=== PATIENT | female | born 1995 | race Caucasian/White ===

== ENCOUNTER 2019-06-26 12:37 | Emergency (ER) | payer OTHER ==
--- NOTE | 2019-06-26 14:11 | ER Document Report ---
ED Medical Screen (RME) - General Chief Complaint: Abdominal Pain Stated Complaint: LOWER ABDOMINAL PAIN Time Seen by Provider: 06/26/19 13:54 Notes: Patient is a 23-year-old female who presents to the emergency department with a chief complaint of abdominal pain. Patient states last Tuesday she developed epigastric pain. Patient states that on Tuesday it started to migrate towards the right lower quadrant. Patient states she was treated for H. pylori back in November and that this feels similar. Patient reports that the pain in her right lower quadrant feels like a constant dull ache. Patient states she has had nausea without vomiting or diarrhea. Patient reports her last bowel movement was yesterday and normal. Patient denies vaginal bleeding or discharge. Patient reports her last menstrual cycle was June 03. TRAVEL OUTSIDE OF THE U.S. IN LAST 30 DAYS: No - Related Data Allergies/Adverse Reactions: azithromycin Allergy (Verified 06/26/19 12:40) clindamycin Allergy (Verified 06/26/19 12:40) tetracycline Allergy (Verified 06/26/19 12:40) Past Medical History Renal/ Medical History: Denies: Hx Peritoneal Dialysis Physical Exam - Vital signs Vitals: Temp Pulse Resp BP Pulse Ox 98.4 F 97 16 127/72 H 98 06/26/19 12:44 06/26/19 12:44 06/26/19 12:44 06/26/19 12:44 06/26/19 12:44 Interpretation: Normal - Abdominal Inspection: Normal Distension: No distension Bowel sounds: Normal Tenderness: Tender - Very minimal tenderness in the RUQ and RLQ Course - Re-evaluation Re-evalutation: 06/26/19 14:11 I have greeted and performed a rapid initial assessment of this patient. A comprehensive ED assessment and evaluation of the patient, analysis of test results and completion of the medical decision making process will be conducted by additional ED providers. - Vital Signs Vital signs: Temp Pulse Resp BP Pulse Ox 98.4 F 97 16 127/72 H 98 06/26/19 12:44 06/26/19 12:44 06/26/19 12:44 06/26/19 12:44 06/26/19 12:44
[2019-06-26 14:45] LABS: ABSOLUTE EOSINOPHILS # (AUTO) 0.1 10^3/uL (0.0-0.6); ABSOLUTE LYMPHOCYTES (AUTO) 1.2 10^3/uL (0.5-4.7); ABSOLUTE MONOCYTES (AUTO) 0.4 10^3/uL (0.1-1.4); ABSOLUTE NEUT (AUTO) 2.2 10^3/uL (1.7-8.2); BASOPHILS % (AUTO) 0.7 % (0-2); EOSINOPHILS % (AUTO) 2.7 % (0-6); HEMATOCRIT 39.2 % (36.0-47.0); HEMOGLOBIN 13.5 g/dL (12.0-15.5); LYMPHOCYTES % (AUTO) 30.8 % (13-45); MEAN CORPUSCULAR HEMOGLOBIN 29.6 pg (27.0-33.4); MEAN CORPUSCULAR HGB CONC 34.5 g/dL (32.0-36.0); MEAN CORPUSCULAR VOLUME 86 fl (80-97); PLATELET COUNT 323 10^3/uL (150-450); RED BLOOD COUNT 4.56 10^6/uL (3.72-5.28); RED CELL DISTRIBUTION WIDTH 12.7 % (11.5-14.0); SEGMENTED NEUTROPHILS % (AUTO) 56.8 % (42-78); TOTAL CELLS COUNTED % (AUTO) 100 %; WHITE BLOOD COUNT 3.9 10^3/uL (4.0-10.5)
[2019-06-26 14:49] LABS: AMORPHOUS SEDIMENT,URINE TRACE /HPF; APPEARANCE,URINE TURBID; BILIRUBIN,URINE NEGATIVE (NEGATIVE); COLOR,URINE AMBER; GLUCOSE, URINE NEGATIVE (NEGATIVE); KETONES,URINE NEGATIVE (NEGATIVE); LEUKOCYTE ESTERASE,URINE NEGATIVE (NEGATIVE); NITRITE,URINE NEGATIVE (NEGATIVE); PROTEIN,URINE NEGATIVE (NEGATIVE); URINE SPECIFIC GRAVITY 1.024; UROBILINOGEN,URINE NEGATIVE mg/dL (<2.0)
[2019-06-26] MEDS ORDERED: ONDANSETRON 4 MG TAB.RAPDIS PO ONE (14:49)
--- NOTE | 2019-06-26 14:55 | ER Document Report ---
ED General - General Chief Complaint: Abdominal Pain Stated Complaint: LOWER ABDOMINAL PAIN Time Seen by Provider: 06/26/19 13:54 Mode of Arrival: Ambulatory Information source: Patient TRAVEL OUTSIDE OF THE [place]S. IN LAST 30 DAYS: No - HPI Notes: Patient presents with a approximate 4-day history of abdominal pain. She states that it started in the epigastric area and is now located in the right lower quadrant. It has been constant. Nothing makes it better or worse. She states she has had a normal appetite. She has had some nausea but no vomiting. No problems with urine or stool. No vaginal discharge or bleeding. She states she does not believe she is . No significant medical problems or past surgeries. The pain does radiate to her back. It is sharp. It is moderate in intensity. - Related Data Allergies/Adverse Reactions: azithromycin Allergy (Verified 06/26/19 12:40) clindamycin Allergy (Verified 06/26/19 12:40) tetracycline Allergy (Verified 06/26/19 12:40) Past Medical History - General Information source: Patient - Social History Smoking Status: Never Smoker Frequency of alcohol use: None Drug Abuse: None Family History: Reviewed & Not Pertinent Patient has suicidal ideation: No Patient has homicidal ideation: No Renal/ Medical History: Denies: Hx Peritoneal Dialysis Review of Systems - Review of Systems Constitutional: denies: Chills, Fever Cardiovascular: denies: Chest pain, Dyspnea Respiratory: denies: Cough, Short of breath -: Yes All other systems reviewed and negative Physical Exam - Vital signs Vitals: Temp Pulse Resp BP Pulse Ox 98.4 F 97 16 127/72 H 98 06/26/19 12:44 06/26/19 12:44 06/26/19 12:44 06/26/19 12:44 06/26/19 12:44 Interpretation: Normal - General General appearance: Appears well, Alert - HEENT Head: Normocephalic, Atraumatic Eyes: Normal Pupils: PERRL - Respiratory Respiratory status: No respiratory distress Chest status: Nontender Breath sounds: Normal Chest palpation: Normal - Cardiovascular Rhythm: Regular Heart sounds: Normal auscultation Murmur: No - Abdominal Inspection: Normal Distension: No distension Bowel sounds: Normal Tenderness: Tender - Patient is mildly tender palpation on the right lower quadrant Organomegaly: No organomegaly - Back Back: Normal, Nontender - Extremities General upper extremity: Normal inspection, Nontender, Normal color, Normal ROM, Normal temperature General lower extremity: Normal inspection, Nontender, Normal color, Normal ROM, Normal temperature, Normal weight bearing. No: Joi's sign - Neurological Neuro grossly intact: Yes Cognition: Normal Orientation: AAOx4 [place] Coma Scale Eye Opening: Spontaneous [place] Coma Scale Verbal: Oriented Shaq Coma Scale Motor: Obeys Commands Shaq Coma Scale Total: 15 Speech: Normal Motor strength normal: LUE, RUE, LLE, RLE Sensory: Normal - Psychological Associated symptoms: Normal affect, Normal mood - Skin Skin Temperature: Warm Skin Moisture: Dry Skin Color: Normal Course - Vital Signs Vital signs: Temp Pulse Resp BP Pulse Ox 98.4 F 97 16 127/72 H 98 06/26/19 12:44 06/26/19 12:44 06/26/19 12:44 06/26/19 12:44 06/26/19 12:44 - Laboratory Result Diagrams: 06/26/19 14:37 06/26/19 14:37 Laboratory results interpreted by me: 06/26/19 06/26/19 06/26/19 12:49 14:37 14:37 WBC 3.9 L Total Protein 6.2 L Urine Blood SMALL H 06/26/19 15:26 Laboratory 06/26/19 06/26/19 06/26/19 12:49 14:37 14:37 WBC 3.9 L RBC 4.56 Hgb 13.5 Hct 39.2 MCV 86 MCH 29.6 MCHC 34.5 RDW 12.7 Plt Count 323 Seg Neutrophils % 56.8 Lymphocytes % 30.8 Monocytes % 9.0 Eosinophils % 2.7 Basophils % 0.7 Absolute Neutrophils 2.2 Absolute Lymphocytes 1.2 Absolute Monocytes 0.4 Absolute Eosinophils 0.1 Absolute Basophils 0.0 Sodium 137.9 Potassium 4.0 Chloride 104 Carbon Dioxide 26 Anion Gap 8 BUN 15 Creatinine 0.59 Est GFR ( Amer) > 60 Est GFR (Non-Af Amer) > 60 Glucose 85 Calcium 9.1 Total Bilirubin 0.2 Direct Bilirubin 0.1 Neonat Total Bilirubin Not Reportable Neonat Direct Bilirubin Not Reportable Neonat Indirect Bili Not Reportable AST 27 ALT 34 Alkaline Phosphatase 39 Total Protein 6.2 L Albumin 3.7 Lipase 63.3 Urine Color WARREN Urine Appearance TURBID Urine pH 5.0 Ur Specific Linden 1.024 Urine Protein NEGATIVE Urine Glucose (UA) NEGATIVE Urine Ketones NEGATIVE Urine Blood SMALL H Urine Nitrite NEGATIVE Urine Bilirubin NEGATIVE Urine Urobilinogen NEGATIVE Ur Leukocyte Esterase NEGATIVE Urine WBC (Auto) 0 Squamous Epi Cells Auto 2 Amorphous Sediment Auto TRACE Urine Mucus (Auto) OCC Urine Ascorbic Acid NEGATIVE Urine HCG, Qual NEGATIVE - Diagnostic Test Radiology reviewed: Image reviewed, Reports reviewed Radiology results interpreted by me: 06/26/19 15:26 Abdomen/Pelvis CT 06/26/19 14:49 IMPRESSION: Trace amount of fluid the pelvis most likely physiologic. No other significant findings. Discharge - Discharge Clinical Impression: Right lower quadrant pain Condition: Stable Disposition: HOME, SELF-CARE Instructions: Abdominal Pain ([facility]) Additional Instructions: If he continues to have abdominal pain or if the abdominal pain worsens please return to the emergency department or to a medical provider for reevaluation. Prescriptions: Tramadol HCl [Ultram 50 mg Tablet] 50 mg PO Q4HP PRN #10 tab PRN Reason: Referrals: ASHLEY GRIFFIN MD [ACTIVE STAFF] - Follow up as needed
[2019-06-26 15:06] LABS: ALBUMIN 3.7 g/dL (3.5-5.0); ALKALINE PHOSPHATASE 39 U/L (38-126); ANION GAP 8 (5-19); ASPARTATE AMINO TRANSFERASE 27 U/L (14-36); BILIRUBIN,DIRECT 0.1 mg/dL (0.0-0.4); BILIRUBIN,TOTAL 0.2 mg/dL (0.2-1.3); BLOOD UREA NITROGEN 15 mg/dL (7-20); CALCIUM 9.1 mg/dL (8.4-10.2); CARBON DIOXIDE 26 mmol/L (22-30); CHLORIDE 104 mmol/L (98-107); GLUCOSE 85 mg/dL (75-110); TOTAL PROTEIN 6.2 g/dL (6.3-8.2)
--- NOTE | 2019-06-26 15:23 | RADIOLOGY REPORT (SQ) ---
EXAM DESCRIPTION: CT ABD/PELVIS NO ORAL OR IV COMPLETED DATE/TIME: 06/26/2019 3:11 pm REASON FOR STUDY: right lq pain/rule out stone COMPARISON: None. TECHNIQUE: CT scan of the abdomen and pelvis performed without intravenous or oral contrast. Images reviewed with lung, soft tissue, and bone windows. Reconstructed coronal and sagittal MPR images revi ewed. All images stored on PACS. All CT scanners at this facility use dose modulation, iterative reconstruction, and/or weight based d osing when appropriate to reduce radiation dose to as low as reasonably achievable (ALARA). [facility]: Dose Right [facility]: CareDose [facility]: Dose Right [facility]: Teradose 4D [facility]: Smart SkyDox RADIATION DOSE: CT Rad equipment meets quality standard of care and radiation dose reduction techniq ues were employed. CTDIvol: 2.2 mGy. DLP: 111 mGy-cm.mGy. LIMITATIONS: None. FINDINGS: LOWER CHEST: No significant findings. No nodules or infiltrates. NON-CONTRASTED LIVER, SPLEEN, ADRENALS: Evaluation limited by lack of IV contrast. No identified sign ificant masses. PANCREAS: No masses. No peripancreatic inflammatory changes. GALLBLADDER: No identified stones by CT criteria. No inflammatory changes to suggest cholecystitis. RIGHT KIDNEY AND URETER: No suspicious masses. Assessment limited by lack of IV contrast. No signif icant calcifications. No hydronephrosis or hydroureter. LEFT KIDNEY AND URETER: No suspicious masses. Assessment limited by lack of IV contrast. No signifi cant calcifications. No hydronephrosis or hydroureter. AORTA AND RETROPERITONEUM: No aneurysm. No retroperitoneal masses or adenopathy. BOWEL AND PERITONEAL CAVITY: No obvious masses or inflammatory changes. No free fluid. There is a mo derate amount of stool throughout the colon. APPENDIX: Not visualized. PELVIS, BLADDER, AND ABDOMINAL WALL:There is a trace amount of free fluid the pelvis. BONES: No significant findings. OTHER: No other significant finding. IMPRESSION: Trace amount of fluid the pelvis most likely physiologic. No other significant findings . COMMENT: Quality ID # [id number]: Final reports with documentation of one or more dose reduction techniques (e.g., Automated exposure control, adjustment of the mA and/or kV according to patient size, use of iterative reconstruction technique) TECHNICAL DOCUMENTATION: JOB ID: [id number]- All Rights Reserved Reading location - IP/workstation name: [email or web address]
[2019-06-26 15:55] VITALS: BP 109/61
== END 2019-06-26 15:56 | disposition home or self-care (01) ==
LOC: ER 12:37
DX: R10.31 Right lower quadrant pain (principal); R11.0 Nausea; R10.813 Right lower quadrant abdominal tenderness; R18.8 Other ascites; Z88.1 Allergy status to other antibiotic agents
CPT/HCPCS: 36415; 83690; 85025; 81025; 80053; 81001; 74176; S0119; 99284

== ENCOUNTER 2019-11-15 14:24 | Emergency (ER) | payer OTHER ==
--- NOTE | 2019-11-15 16:03 | ER Document Report ---
ED Medical Screen (RME) - General Chief Complaint: Abdominal Pain Stated Complaint: ABDOMINAL PAIN Time Seen by Provider: 11/15/19 15:59 Notes: CHIEF COMPLAINT: Right lower quadrant pain for 6 days HPI: 24-year-old female presenting with right lower quadrant pain that has been constant over the last 6 days. No definitive fever has had some chills. No dysuria. No back pain or flank pain. Denies vaginal discharge or bleeding. Last menstrual cycle was 1 month ago and was normal. Patient does not believe she is . Patient states that it hurts to bend at the waist or sit down. Patient does have prior history of an ovarian cyst but states she is unsure of whether this feels the same she is concerned she might have appendicitis ROS: See HPI - all other systems were reviewed and are otherwise negative Constitutional: no fever GI: no vomiting, no diarrhea, + abdominal pain : no dysuria Integumentary: no rash Allergy: no hives MEDICATIONS: I agree with the patient medications as charted by the RN. ALLERGIES: I agree with the allergies as charted by the RN. PAST MEDICAL HISTORY/PAST SURGICAL HISTORY: Reviewed and agree as charted by RN. SOCIAL HISTORY: Reviewed and agree as charted by RN. FAMILY HISTORY: No significant familial comorbid conditions directly related to patient complaint EXAM: Reviewed vital signs as charted by RN. CONSTITUTIONAL: Alert and oriented and responds appropriately to questions. Well-appearing; well-nourished HEAD: Normocephalic; atraumatic EYES: Conjunctivae clear, sclerae non-icteric ENT: normal nose; no rhinorrhea; moist mucous membranes NECK: Supple without meningismuss CARD: RRR; no murmurs, no clicks, no rubs, no gallops RESP: Normal chest excursion without splinting or tachypnea ABD/GI: Normal bowel sounds; non-distended; soft, mild tenderness in the right lower quadrant and right pelvis on palpation, + mild rebound, no guarding; no palpable organomegaly or masses. Negative psoas negative obturator BACK: The back appears normal and is non-tender to palpation, there is no CVA tenderness EXT: Normal ROM in all joints; non-tender to palpation; no cyanosis, no effusions, no edema SKIN: Normal color for age and race; warm; dry; good turgor NEURO: Moves all extremities equally; Motor and sensory function intact PSYCH: The patient's mood and manner are appropriate. Grooming and personal hygiene are appropriate. I have greeted and performed a rapid initial assessment of this patient. A comprehensive ED assessment and evaluation of the patient, analysis of test results and completion of the medical decision making process will be conducted by additional ED providers TRAVEL OUTSIDE OF THE [place] IN LAST 30 DAYS: No - Related Data Allergies/Adverse Reactions: azithromycin Allergy (Verified 06/26/19 12:40) clindamycin Allergy (Verified 06/26/19 12:40) tetracycline Allergy (Verified 06/26/19 12:40) Past Medical History Renal/ Medical History: Denies: Hx Peritoneal Dialysis Physical Exam - Vital signs Vitals: Temp Pulse Resp BP Pulse Ox 99 F 91 18 129/74 H 100 11/15/19 14:49 11/15/19 14:49 11/15/19 14:49 11/15/19 14:49 11/15/19 14:49 Course - Vital Signs Vital signs: Temp Pulse Resp BP Pulse Ox 99 F 91 18 129/74 H 100 11/15/19 14:49 11/15/19 14:49 11/15/19 14:49 11/15/19 14:49 11/15/19 14:49 - Laboratory Result Diagrams: 11/15/19 16:23 11/15/19 16:23
[2019-11-15 16:33] LABS: ABSOLUTE LYMPHOCYTES (AUTO) 1.3 10^3/uL (0.5-4.7); ABSOLUTE MONOCYTES (AUTO) 0.4 10^3/uL (0.1-1.4); ABSOLUTE NEUT (AUTO) 3.5 10^3/uL (1.7-8.2); BASOPHILS % (AUTO) 0.6 % (0-2); EOSINOPHILS % (AUTO) 0.9 % (0-6); HEMATOCRIT 43.1 % (36.0-47.0); HEMOGLOBIN 14.8 g/dL (12.0-15.5); LYMPHOCYTES % (AUTO) 24.4 % (13-45); MEAN CORPUSCULAR HEMOGLOBIN 29.5 pg (27.0-33.4); MEAN CORPUSCULAR HGB CONC 34.4 g/dL (32.0-36.0); MEAN CORPUSCULAR VOLUME 86 fl (80-97); MONOCYTES % (AUTO) 6.9 % (3-13); PLATELET COUNT 362 10^3/uL (150-450); RED BLOOD COUNT 5.03 10^6/uL (3.72-5.28); RED CELL DISTRIBUTION WIDTH 12.4 % (11.5-14.0); SEGMENTED NEUTROPHILS % (AUTO) 67.2 % (42-78); TOTAL CELLS COUNTED % (AUTO) 100 %; WHITE BLOOD COUNT 5.2 10^3/uL (4.0-10.5)
[2019-11-15 16:37] LABS: APPEARANCE,URINE CLEAR; BILIRUBIN,URINE NEGATIVE (NEGATIVE); COLOR,URINE YELLOW; GLUCOSE, URINE NEGATIVE (NEGATIVE); KETONES,URINE NEGATIVE (NEGATIVE); LEUKOCYTE ESTERASE,URINE NEGATIVE (NEGATIVE); NITRITE,URINE NEGATIVE (NEGATIVE); PROTEIN,URINE NEGATIVE (NEGATIVE); URINE SPECIFIC GRAVITY 1.013; UROBILINOGEN,URINE NEGATIVE mg/dL (<2.0)
[2019-11-15 16:51] LABS: ALBUMIN 4.2 g/dL (3.5-5.0); ALKALINE PHOSPHATASE 42 U/L (38-126); ANION GAP 9 (5-19); ASPARTATE AMINO TRANSFERASE 31 U/L (14-36); BILIRUBIN,DIRECT 0.1 mg/dL (0.0-0.4); BILIRUBIN,TOTAL 0.4 mg/dL (0.2-1.3); BLOOD UREA NITROGEN 15 mg/dL (7-20); CALCIUM 9.7 mg/dL (8.4-10.2); CARBON DIOXIDE 27 mmol/L (22-30); CHLORIDE 102 mmol/L (98-107); GLUCOSE 99 mg/dL (75-110); TOTAL PROTEIN 7.4 g/dL (6.3-8.2)
--- NOTE | 2019-11-15 16:53 | ER Document Report ---
ED GI/ - General TRAVEL OUTSIDE OF THE U.S. IN LAST 30 DAYS: No <GIDEON PIÑA - Last Filed: 11/15/19 19:11> <KUSHSUE BULL - Last Filed: 11/16/19 06:27> - General Chief Complaint: Abdominal Pain Stated Complaint: ABDOMINAL PAIN Time Seen by Provider: 11/15/19 15:59 Notes: CHIEF COMPLAINT: Right lower quadrant pain for 6 days HPI: 24-year-old female presenting with right lower quadrant pain that has been constant over the last 6 days. No definitive fever has had some chills. No dysuria. No back pain or flank pain. Denies vaginal discharge or bleeding. Last menstrual cycle was 1 month ago and was normal. Patient does not believe she is . Patient states that it hurts to bend at the waist or sit down. Patient does have prior history of an ovarian cyst but states she is unsure of whether this feels the same she is concerned she might have appendicitis ROS: See HPI - all other systems were reviewed and are otherwise negative Constitutional: no fever GI: no vomiting, no diarrhea, + abdominal pain : no dysuria Integumentary: no rash Allergy: no hives MEDICATIONS: I agree with the patient medications as charted by the RN. ALLERGIES: I agree with the allergies as charted by the RN. PAST MEDICAL HISTORY/PAST SURGICAL HISTORY: Reviewed and agree as charted by RN. SOCIAL HISTORY: Reviewed and agree as charted by RN. FAMILY HISTORY: No significant familial comorbid conditions directly related to patient complaint EXAM: Reviewed vital signs as charted by RN. CONSTITUTIONAL: Alert and oriented and responds appropriately to questions. W ell-appearing; well-nourished HEAD: Normocephalic; atraumatic EYES: Conjunctivae clear, sclerae non-icteric ENT: normal nose; no rhinorrhea; moist mucous membranes NECK: Supple without meningismuss CARD: RRR; no murmurs, no clicks, no rubs, no gallops RESP: Normal chest excursion without splinting or tachypnea ABD/GI: Normal bowel sounds; non-distended; soft, mild tenderness in the right lower quadrant and right pelvis on palpation, + mild rebound, no guarding; no palpable organomegaly or masses. Negative psoas negative obturator BACK: The back appears normal and is non-tender to palpation, there is no CVA tenderness EXT: Normal ROM in all joints; non-tender to palpation; no cyanosis, no effusions, no edema SKIN: Normal color for age and race; warm; dry; good turgor NEURO: Moves all extremities equally; Motor and sensory function intact PSYCH: The patient's mood and manner are appropriate. Grooming and personal hygiene are appropriate. (GIDEON PIÑA) - Related Data Allergies/Adverse Reactions: azithromycin Allergy (Verified 11/15/19 19:50) clindamycin Allergy (Verified 11/15/19 19:50) tetracycline Allergy (Verified 11/15/19 19:50) Past Medical History - Social History Family History: Reviewed & Not Pertinent Renal/ Medical History: Denies: Hx Peritoneal Dialysis <GIDEON PIÑA - Last Filed: 11/15/19 19:11> - Social History Smoking Status: Never Smoker <SUE LORENZO - Last Filed: 11/16/19 06:27> Physical Exam - Vital signs Vitals: Temp Pulse Resp BP Pulse Ox 99 F 91 18 129/74 H 100 11/15/19 14:49 11/15/19 14:49 11/15/19 14:49 11/15/19 14:49 11/15/19 14:49 Course - Laboratory Result Diagrams: 11/15/19 16:23 11/15/19 16:23 <GIDEON PIÑA - Last Filed: 11/15/19 19:11> - Laboratory Result Diagrams: 11/15/19 16:23 11/15/19 16:23 <SUE LORENZO - Last Filed: 11/16/19 06:27> - Vital Signs Vital signs: Temp Pulse Resp BP Pulse Ox 98.5 F 81 18 147/73 H 99 11/15/19 22:30 11/15/19 22:30 11/15/19 22:30 11/15/19 22:30 11/15/19 22:30 11/15/19 19:11 : Female nurse social services counselor present. External genitalia normal. No skin lesions noted. Pelvic Exam: No active bleeding. No purulent discharge. Cervix appears normal. No CMT. Cervical Os is closed. No lesions or masses. Uterus normal size and non tender. Right/Left adnexa normal size and non tender. Do not suspect PID. Ultrasound did not show acute findings in the right ovary suggesting a definitive cause for patient's pain. Will obtain CT, given the BMI patient will need to drink oral contrast. Report will be given to oncoming shift following disposition (GIDEON PIÑA) Discharge <GIDEON PIÑA - Last Filed: 11/15/19 19:11> <SUE LORENZO - Last Filed: 11/16/19 06:27> - Discharge Clinical Impression: Abdominal pain Qualifiers: Abdominal location: generalized Qualified Code(s): R10.84 - Generalized abdominal pain Condition: Stable Disposition: HOME, SELF-CARE Additional Instructions: Your pain appears to be coming from retained stool in the colon, I recommend that you take the Colace as prescribed for the next several days, use the Bentyl for pain/cramps, take the Phenergan if needed for nausea and abdominal upset. Increase fiber, continue to hydrate. You might need the stool softener periodically to avoid this in the future, but avoid taking this daily. 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 Please take the report and follow-up closely with the urology referral for additional management and treatment of this. Call one of the l isted referrals below to have this performed. Return if you worsen including vomiting, fever, severe worsening pain, or any other concerning symptoms. [facility] [address] [place], [place] [id number] [facility] [address] [place], [place] [id number] Regi Blake MD Doctor in [place], [place] Address: [address], [place] [address] Prescriptions: Dicyclomine HCl [Bentyl 20 mg Tablet] 20 mg PO QID PRN #20 tablet PRN Reason: Docusate Sodium [Colace 100 mg Capsule] 100 mg PO ASDIR PRN #30 capsule PRN Reason: Promethazine HCl [Phenergan 25 mg Tablet] 25 mg PO Q6H PRN #15 tablet PRN Reason: Forms: Return to Work
--- NOTE | 2019-11-15 18:10 | RADIOLOGY REPORT (SQ) ---
EXAM DESCRIPTION: U/S NON OB PEL W/DOPPLER COMPLETED DATE/TIME: 11/15/2019 5:27 pm REASON FOR STUDY: RLQ pain LMP 10/18/2019 COMPARISON: None. TECHNIQUE: Dynamic and static grayscale images acquired of the pelvis via transabdominal approach an d recorded on PACS. Additional selected color Doppler and spectral images recorded. LIMITATIONS: None. FINDINGS: UTERUS: Contour normal. No mass. ENDOMETRIAL STRIPE: No focal or generalized thickening. No masses. CERVIX: 2.7 cm. No nabothian cysts. RIGHT OVARY AND DOPPLER: Normal size. No worrisome masses. Normal arterial vascular flow without evid ence for torsion. LEFT OVARY AND DOPPLER: Ovary not seen. FREE FLUID: None noted. OTHER: No other significant finding. MEASUREMENTS: UTERUS: 5.9 x 3.2 x 2.5 cm. ENDOMETRIAL STRIPE: 5 mm. RIGHT OVARY: 1.9 x 2.2 x 1.9 cm. LEFT OVARY: Not seen. IMPRESSION: NORMAL PELVIC ULTRASOUND. TECHNICAL DOCUMENTATION: JOB ID: [id number]- All Rights Reserved Rev-03/24 Reading location - IP/workstation name: [email or web address]
[2019-11-15 18:58] LABS: RBCS (WET MOUNT) RARE RBCS SEEN; T.VAGINALIS (WET MOUNT) NO TRICHOMONAS SEEN; WBCS (WET MOUNT) RARE WBCS SEEN; YEAST (WET MOUNT) NO YEAST SEEN
[2019-11-15] MEDS ORDERED: MORPHINE SULFATE 10 MG/ML INJ IV ONE (19:11)
[2019-11-15] MEDS ORDERED: ONDANSETRON HCL INJ/PF 4 MG/2 ML SDV IV ONE (19:11)
[2019-11-15 20:28] LABS: CHLAM PCR NOT DETECTED (NOT DETECT)
--- NOTE | 2019-11-15 21:49 | RADIOLOGY REPORT (SQ) ---
EXAM DESCRIPTION: CLINICAL HISTORY: 24 years Female RLQ pain COMPARISON: CT 06/26/2019. TECHNIQUE: 57 mL Omnipaque 350. Oral contrast was administered. Sagittal coronal reconstruction. This exam was performed according to our departmental dose-optimization program, which includes automated exposure control, adjustment of the mA and/or kV according to patient size and/or use of iterative reconstruction technique.. FINDINGS: Lung bases, liver, spleen, pancreas, biliary system, adrenal glands, aorta and para-aortic regions are unremarkable. No suspicious bowel or peritoneal abnormalities. 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 There is no evidence for horseshoe kidney. There is moderate dilatation of each renal pelvis with mild atelectasis bilaterally. There is suggestion of bilateral UPJ stenosis. The ureters are not dilated. Suggestive the pelvis demonstrates an anteflexed uterus. Minimally thickened but not obviously abnormal endometrium. No free fluid. Urinary bladder contracted and unremarkable. Adnexa not enlarged. Mild dilatation of distal small bowel loops. Mild increased stool in the right colon. IMPRESSION: 1. 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 [id number] bilateral hydronephrosis especially dilatation of each renal pelvis. Findings suggestive of bilateral UPJ stenosis. Findings more conspicuous compared to previous CT without IV contrast presumably due to the pressure effect of injecting contrast. 2. Mild dilatation of distal small bowel loops. Mild increased right colonic stool. This was present previously. 3. Tiny amount of free fluid in the pelvis probably physiologic.
[2019-11-15] MEDS ORDERED: KETOROLAC TROMETHAMINE INJ/PF 30 MG/1 ML SDV IV ONE (22:10)
[2019-11-15 22:33] VITALS: BP 147/73
== END 2019-11-15 22:33 | disposition home or self-care (01) ==
LOC: ER 14:24
DX: R10.84 Generalized abdominal pain (principal); R10.31 Right lower quadrant pain; Z88.3 Allergy status to other anti-infective agents; Z87.440 Personal history of urinary (tract) infections
CPT/HCPCS: 99284; 96374; 96375; 36415; 87210; 83690; 85025; 81025; 80053; 81001; 87491; 87591; 76856; 93976; 74177; J1885; J2270; J2405